=== PATIENT | female | born 1990 | race Caucasian/White ===

== ENCOUNTER 2021-01-04 05:24 | Emergency (ER) | payer OTHER ==
[~2021-01-04] VITALS: Ht 162.6 cm; Wt 81.0 kg
[2021-01-04] MEDS ORDERED: ONDANSETRON PF 4 MG/2 ML VIAL. IVP ONE (05:45)
[2021-01-04] MEDS ORDERED: IV RINGERS SOLUTION,LACTATED 1,000 ML IV ONE (05:45)
--- NOTE | 2021-01-04 05:46 | PHYS DOC ---
Adult General Chief Complaint Chief Complaint: SEIZURE HPI HPI Patient is a 30-year-old female with a past medical history significant for seizure disorder on Keppra and hypertension who presents with a chief complaint of seizure. States that about an hour before coming to the emergency department she had an approximately 1 minute generalized tonic-clonic seizure according to her . States she had had a seizure for well over a year. States that she did not take her Keppra yesterday, 1500 mg twice daily because she was not feeling well and was feeling nauseous so decided not to take it. Denies any headache, fevers, chest pain, shortness of breath, dysuria, hematuria or blood in the stool. Does endorse abdominal discomfort, nausea and vomiting yesterday. Denies any recent travel, traumas, Covid/flu exposures that she is aware of. Denies any alcohol or drug use. Denies any vaginal bleeding, discharge or pain. States that she should not be as her has had a vasectomy. States she was otherwise eating and drinking normally yesterday. States she has been making urine and stool normal for her. (SDUARSHAN HERNANDEZ MD) Review of Systems Review of Systems Review of systems otherwise unremarkable except noted in HPI (SUDARSHAN HERNANDEZ MD) Physical Exam Physical Exam Constitutional: Well developed, well nourished, no acute distress, non-toxic appearance. [] HENT: Normocephalic, atraumatic, bilateral external ears normal, oropharynx moist, no oral exudates, nose normal. [] Eyes: PERRLA, EOMI, conjunctiva normal, no discharge. [] Neck: Normal range of motion, no tenderness, supple, no stridor. [] Cardiovascular: Tachycardia no murmur Lungs & Thorax: Bilateral breath sounds clear to auscultation [] Abdomen: soft, mild generalized tenderness, no masses, no pulsatile masses. [] Skin: Warm, dry, no erythema, no rash. [] Back: No tenderness, no CVA tenderness. [] Extremities: No tenderness, no cyanosis, no clubbing, ROM intact, no edema. [] Neurologic: Alert and oriented X 3, normal motor function, normal sensory function, no focal deficits noted. NIH of 0. [] Psychologic: Affect normal, judgement normal, mood normal. [] (SUDARSHAN HERNANDEZ MD) EKG EKG [] (SUDARSHAN HERNANDEZ MD) EKG Sinus tachycardia 102 bpm, no axis deviation, QTC 466, T wave inversions in lead III and V3, no ST elevations or ST depressions, has no chest pain in ed (DIANA STEPHENS DO) Radiology/Procedures Radiology/Procedures [] (SUDARSHAN HERNANDEZ MD) Radiology/Procedures IMAGING REPORT Signed PATIENT: STORM CASTILLO ACCOUNT: [id number] : 1990 LOCATION: ER AGE: 30 SEX: F EXAM STATUS: REG ER ORD. PHYSICIAN: SUDARSHAN HERNANDEZ MD REASON: Seizure activity Hx: AVM PROCEDURE: CT HEAD WO CONTRAST STUDY: CT head without contrast INDICATION: Seizure activity. Provided history of an AVM. COMPARISON: None. TECHNIQUE: Axial CT imaging through the head without the use of intravenous contrast. Sagittal and coronal reformats were obtained. One or more of the following individualized dose reduction techniques were utilized for this examination: 1. Automated exposure control 2. Adjustment of the mA and/or kV according to patient size 3. Use of iterative reconstruction technique. FINDINGS: No acute intracranial hemorrhage. No localized sulcal effacement. The midline is slightly deviated to the right but without any findings to suggest that this is related to mass effect. Right frontal encephalomalacia in the setting of a right frontotemporoparietal craniotomy and several vascular clips. Associated ex vacuo ventriculomegaly of the right lateral ventricle mainly at the anterior horn. Jara-white matter differentiation is maintained elsewhere. No inflammatory changes or fluid collection within the scalp. A few areas of scarring. Unremarkable orbits. Normally aerated mastoid air cells, middle ears and visualized paranasal sinuses. IMPRESSION: 1. No acute intracranial abnormality by CT. 2. Right frontal lobe encephalomalacia in the setting of several vascular clips and a right frontotemporoparietal craniotomy. Electronically signed by: RAJEEV OLVERA MD (01/04/2021 6:29 AM) [facility] DICTATED AND SIGNED BY: RAJEEV OLVERA MD DATE: 01/04/21625 CC: SUDARSHAN HERNANDEZ MD; PCP,UNKNOWN; DIANA STEPHENS DO ~MTH0 0 IMAGING REPORT Signed PATIENT: STORM CASTILLO ACCOUNT: [id number] : 1990 LOCATION: ER AGE: 30 SEX: F EXAM STATUS: REG ER ORD. PHYSICIAN: SUDARSHAN HERNANDEZ MD REASON: Seizure activity, abdomen pain Omni 300 75cc PROCEDURE: CT ABD PELV W/ IV CONTRST ONLY Study: CT abdomen/pelvis with intravenous contrast Indication: Seizure activity. Abdominal pain. Comparison: None. Technique: Helical CT imaging performed of the abdomen and pelvis after the intravenous administration of 75 cc Omnipaque 300 contrast. Sagittal and coronal reformats were obtained. One or more of the following individualized dose reduction techniques were ut ilized for this examination: 1. Automated exposure control 2. Adjustment of the mA and/or kV according to patient size 3. Use of iterative reconstruction technique. Findings: Chest: Unremarkable. Liver: Hepatic steatosis and hepatomegaly. Gallbladder/Biliary Tree: Surgically absent. Within normal limits biliary tree. Pancreas: Unremarkable. Spleen: Within normal limits for size. Adrenal Glands: Unremarkable. Kidneys/Ureters/Bladder: Symmetric renal enhancement. No hydronephrosis or stone. Unremarkable bladder. Reproductive Organs: Within normal limits uterus and ovaries for patient age. Colon: Within normal limits. Appendix: Normal. Small Bowel: Nonobstructed. Stomach: Unremarkable. Vasculature: Patent major veins. Normal aortic caliber. Lymph Nodes: Normal in size. Peritoneum and Body Wall: No free fluid or pneumoperitoneum. Bones: No acute abnormality. No significant spondylosis. Minimal thoracolumbar dextrocurvature centered at L2. Miscellaneous: None. Impression: 1. No acute abnormality seen throughout the abdomen or pelvis. 2. Hepatic steatosis and hepatomegaly. Electronically signed by: RAJEEV OLVERA MD (01/04/2021 6:33 AM) [facility] DICTATED AND SIGNED BY: RAJEEV OLVERA MD DATE: 01/04/21628 CC: SUDARSHAN HERNANDEZ MD; PCP,UNKNOWN; DIANA STEPHENS DO ~MTH0 0 (DIANA STEPHENS DO) Heart Score Risk Factors: Risk Factors: DM, Current or recent (<one month) smoker, HTN, HLP, family history of CAD, obesity. Risk Scores: Risk Factors: DM, Current or recent (<one month) smoker, HTN, HLP, family history of CAD, obesity. (SUDARSHAN HERNANDEZ MD) Course & Med Decision Making Course & Med Decision Making Patient is a 30-year-old female with a seizure disorder who presents with a single 1 minute seizure. On arrival, EMS stated she was awake and alert but was post ictal. Had a blood sugar of 180. Vital signs notable for tachycardia. Physical exam noted above. Patient placed on the monitor with IV access established and IV fluid began. Given Zofran for nausea. Given home dose of Keppra that she missed. Patient's care handed off to day team at checkout. [] (SUDARSHAN HERNANDEZ MD) Course & Med Decision Making 30-year-old female with history of 2 AVMs w/vascular clipping approximately 3 years ago while residing in [place] (moved to [facility] 3 months ago[place] -surgery was complicated via upper extremity bleeding, compartment syndrome and fasciotomy (2 large scars on forerarm). Presents to the ED after 1 seizure, postictal on arrival. Patient complains of nausea and vomiting yesterday, and missed 1 dose of her Keppra. No associated diarrhea. Last seizure was in August. Keppra dosage has been consistent for approximately 1 year. Is not establish neurology care. Has no associated fever, chills, headache, nuchal rigidity, vaginal bleeding, dysuria, hematuria, cough, sore throat, diarrhea or any other infectious symptoms. Denies any recent alcohol use. Reports she is frightened every time she wakes up in a hospital because of her experience 3 yrs ago where she called 911 and recalls being intubated. Nexus criteria negative. AG 2/2 elevated LA which is c/w seizure activity, normal renal function. Patient repeatedly asked if she was having a headache history with her nausea or vomiting and she eventually did report she had a mild headache and it was her typical migraine. Has no headache currently. reports difficulties establishing neurology care due to paperwork issues. Has plenty of Keppra refills. Reports she does not smoke marijuana daily for more than a year-is aware alcohol and drugs can decrease her seizure threshold and strongly encourage medication compliance. Will prescribe ODT Zofran. Pt with DMC/steady gait and no complaints at time of discharge. Will discharge home with strict ED return precautions were given for repeat head trauma, recurrent seizures with concerns for cyanosis or that do not resolve quickly, altered mental status, confusion or neurologic deficits. Encouraged urgent outpatient follow-up with PMD and neurology urgent outpatient follow-up. Life-threatening processes were considered but are low suspicion at this time, given history, physical exam and ED workup. Pt was educated on all prescription medications and adverse effects. All patient's questions were answered and pt was stable at time of discharge. Life/limb-threatening differential includes but is not limited to, intracranial hemorrhage, diffuse axonal injury, spinal cord syndrome, unstable cervical fracture or SCIWORA, fractures or joint dislocations, neurovascular injuries, organ injury or laceration, pneumothorax, pneumoperitoneum, compartment syndrome, flail chest or respiratory distress, status epilepticus or airway compromise. I spoken with the patient and her caregivers. I explained the patient's condition, diagnoses and treatment plan based on the information available to me at this time. I have answered the patient and her caregiver's questions and addressed any concerns. The patient and her caregivers have a good understandi ng of patient's diagnosis, condition and treatment plan as can be expected at this point. Vital signs have been stable. Patient's condition is stable and appropriate for discharge from the emergency department. Patient will pursue further outpatient evaluation with primary care physician or other designated or consulting physician as outlined in the discharge instructions. The patient and/or caregivers are agreeable to this plan of care and follow-up instructions have been explained in detail. The patient and/or caregivers have received these instructions in written form and have expressed an understanding of the discharge instructions. The patient and/or caregivers are aware that any significant change of condition or worsening of symptoms should prompt immediate return to this or the closest emergency department or call to 911. ([facility]) Dragon Disclaimer Dragon Disclaimer This electronic medical record was generated, in whole or in part, using a voice recognition dictation system. (SUDARSHAN HERNANDEZ MD) Departure Departure: Impression: Primary Impression: Seizure Disposition: 01 DC HOME SELF CARE/HOMELESS Condition: STABLE Referrals: CARLOS MORROW MD FOLLOW UP WITH FAMILY MEDICINE: Banyan Branch, [facility] [address] [address] [address], [facility] Instructions: Seizure, Adult Additional Instructions: FOLLOW UP WITH NEUROLOGY: Katie Mayfield MD [address] [place] [address], [address] [place], [place] [id number] OR [address] [place], [place] [id number] EMERGENCY DEPARTMENT GENERAL DISCHARGE INSTRUCTIONS Thank you for coming to [facility] (ED) today and trusting us with you care. We trust that you had a positivie experience in our Emergency Department. If you wish to speak to the department management, you may call the director at [phone]. YOUR FOLLOW UP INSTRUCTIONS ARE FOLLOWS: 1. Do you have a private Doctor? If you do not have a private doctor, please ask for a resource list of physicians or clinics that may be able to assist you with follow up care. 2. The Emergency Physician has interpreted your x-rays. The X-Ray specialist will also review them. If there is a change in the findings, you will be notified in 48 hours when at all possible. 3. A lab test or culture has been done, your results will be reviewed and you will be notified if you need a change in treatment. ADDITIONAL INSTRUCTIONS AND INFORMATION: 1. Your care today has been supervised by a physician who is specially trained in emergency care. Many problems require more than one evaluation for a complete diagnosis and treatment. We recommend that you schedule your follow up appointment as recommended to ensure complete treatment of you illness or injury. If you are unable to obtain follow up care and continue to have a problem, or if your condition worsens, we recommend that you return to the ED. 2. We are not able to safely determine your condition over the phone nor are we able to give sound medical advice over the phone. For these safety reasons, if you call for medical advice we will ask you to come to the ED for further evaluation. 3. If you have any questions regarding these discharge instructions please call the ED at [phone]. SAFETY INFORMATION: In the interest of safety, wellness, and injury prevention; we encourage you to wear your sealbelt, if you smoke; quite smoking, and we encourage family to use a protective helmet for bicycling and other sporting events that present an increased risk for head injury. IF YOUR SYMPTOMS WORSEN OR NEW SYMPTOMS DEVELOP, OR YOU HAVE CONCERNS ABOUT YOUR CONDITION; OR IF YOUR CONDITION WORSENS WHILE YOU ARE WAITING FOR YOUR FOLLOW UP APPOINTMENT; EITHER CONTACT YOUR PRIMARY CARE DOCTOR, THE PHYSICIAN WHOSE NAME AND NUMBER YOU WERE GIVEN, OR RETURN TO THE ED IMMEDIATELY. Scripts Ondansetron (ONDANSETRON ODT) 4 Mg Tab.rapdis 4 MG PO Q6HRS for Nausea/Vomiting, #15 TAB Prov: DIANA STEPHENS DO 01/04/21 SUDARSHAN HERNANDEZ MD Jan 04, 2021 05:46 DIANA STEPHENS DO Jan 04, 2021 07:41
[2021-01-04 05:50] LABS: BASO % 0 % (0-3); EOS # 0.1 x10^3/uL (0.0-0.7); EOS % 1 % (0-3); HEMATOCRIT 47.8 % (36.0-47.0); HEMOGLOBIN 15.7 g/dL (12.0-15.5); LYMPH # 1.7 x10^3/uL (1.0-4.8); LYMPH % 15 % (24-48); MEAN CORPUSCULAR HEMOGLOBIN 30 pg (25-35); MEAN CORPUSCULAR HGB CONC 33 g/dL (31-37); MEAN CORPUSCULAR VOLUME 91 fL (79-100); MONO # 0.4 x10^3/uL (0.0-1.1); MONO % 4 % (0-9); NEUT # 8.9 x10^3uL (1.8-7.7); NEUT % 80 % (31-73); PLATELET COUNT 378 x10^3/uL (140-400); RED BLOOD COUNT 5.25 x10^6/uL (3.50-5.40); RED CELL DISTRIBUTION WIDTH 13.6 % (11.5-14.5); WHITE BLOOD COUNT 11.1 x10^3/uL (4.0-11.0)
[2021-01-04 05:54] LABS: CALCIUM 9.4 mg/dL (8.5-10.1); GFR 64.3; POTASSIUM 4.5 mmol/L (3.5-5.1)
[2021-01-04] MEDS ORDERED: CONTRAST GIVEN. MC PRN (06:00)
[2021-01-04] MEDS ORDERED: levETIRAcetam 500 MG TABLET PO SCH (06:00)
[2021-01-04] MEDS ORDERED: IOHEXOL 300 MG/ML 75 ML VIAL. IV ONE (06:00)
[2021-01-04] MEDS ORDERED: MIDAZOLAM HCL PF 5 MG/5 ML VIAL. IV ONE (06:00)
[2021-01-04 06:01] LABS: ALBUMIN 4.6 g/dL (3.4-5.0); MAGNESIUM 2.2 mg/dL (1.8-2.4); TOTAL BILIRUBIN 0.3 mg/dL (0.2-1.0); TOTAL PROTEIN 9.1 g/dL (6.4-8.2)
[2021-01-04 06:03] LABS: PREG TEST PT QUAL NEGATIVE (NEG)
--- NOTE | 2021-01-04 06:30 | EKG ---
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
--- NOTE | 2021-01-04 06:32 | RAD ---
STUDY: CT head without contrast INDICATION: Seizure activity. Provided history of an AVM. COMPARISON: None. TECHNIQUE: Axial CT imaging through the head without the use of intravenous contrast. Sagittal and co abdirizak reformats were obtained. One or more of the following individualized dose reduction techniques were utilized for this examinat ion: 1. Automated exposure control 2. Adjustment of the mA and/or kV according to patient size 3. Use of iterative reconstruction technique. FINDINGS: No acute intracranial hemorrhage. No localized sulcal effacement. The midline is slightly deviated to the right but without any findings to suggest that this is related to mass effect. Right frontal enc ephalomalacia in the setting of a right frontotemporoparietal craniotomy and several vascular clips. Associated ex vacuo ventriculomegaly of the right lateral ventricle mainly at the anterior horn. Jara -white matter differentiation is maintained elsewhere. No inflammatory changes or fluid collection within the scalp. A few areas of scarring. Unremarkable o rbits. Normally aerated mastoid air cells, middle ears and visualized paranasal sinuses. IMPRESSION: 1. No acute intracranial abnormality by CT. 2. Right frontal lobe encephalomalacia in the setting of several vascular clips and a right frontote mporoparietal craniotomy. Electronically signed by: RAJEEV OLVERA MD (01/04/2021 6:29 AM) [facility]
--- NOTE | 2021-01-04 06:36 | RAD ---
Study: CT abdomen/pelvis with intravenous contrast Indication: Seizure activity. Abdominal pain. Comparison: None. Technique: Helical CT imaging performed of the abdomen and pelvis after the intravenous administratio n of 75 cc Omnipaque 300 contrast. Sagittal and coronal reformats were obtained. One or more of the following individualized dose reduction techniques were utilized for this examinat ion: 1. Automated exposure control 2. Adjustment of the mA and/or kV according to patient size 3. Use of iterative reconstruction technique. Findings: Chest: Unremarkable. Liver: Hepatic steatosis and hepatomegaly. Gallbladder/Biliary Tree: Surgically absent. Within normal limits biliary tree. Pancreas: Unremarkable. Spleen: Within normal limits for size. Adrenal Glands: Unremarkable. Kidneys/Ureters/Bladder: Symmetric renal enhancement. No hydronephrosis or stone. Unremarkable bladde r. Reproductive Organs: Within normal limits uterus and ovaries for patient age. Colon: Within normal limits. Appendix: Normal. Small Bowel: Nonobstructed. Stomach: Unremarkable. Vasculature: Patent major veins. Normal aortic caliber. Lymph Nodes: Normal in size. Peritoneum and Body Wall: No free fluid or pneumoperitoneum. Bones: No acute abnormality. No significant spondylosis. Minimal thoracolumbar dextrocurvature center ed at L2. Miscellaneous: None. Impression: 1. No acute abnormality seen throughout the abdomen or pelvis. 2. Hepatic steatosis and hepatomegaly. Electronically signed by: RAJEEV OLVERA MD (01/04/2021 6:33 AM) [facility]
[2021-01-04 07:11] LABS: AMPHETAMINE/METHAMPHETAMINE NEG (NEG); BARBITURATES NEG (NEG); BENZODIAZEPINES POS (NEG); CANNABINOIDS POS (NEG); COCAINE NEG (NEG); METHADONE NEG (NEG); OPIATES NEG (NEG); PHENCYCLIDINE NEG (NEG)
[2021-01-04 07:27] LABS: BILIRUBIN,URINE NEG (NEG); CLARITY,URINE HAZY; COLOR,URINE YELLOW; GLUCOSE,URINE NEG (NEG); NITRITE,URINE NEG (NEG); UROBILINOGEN,URINE 0.2 mg/dL (0.2 mg/dL)
[2021-01-04 07:28] LABS: BACTERIA,URINE FEW /HPF (0-FEW); SQUAMOUS EPITHELIAL CELL,UR MOD /LPF
[2021-01-04 07:47] VITALS: BP 124/78
[2021-01-04] MEDS ORDERED: ONDA4TAB12 PO (07:51)
== END 2021-01-04 08:10 | disposition home or self-care (01) ==
LOC: ER 05:24
DX: G40.909 Epilepsy, unspecified, not intractable, without status epilepticus (principal); R11.2 Nausea with vomiting, unspecified; I10 Essential (primary) hypertension
CPT/HCPCS: 36415; 70450; 74177; 80053; 80307; 81001; 82550; 83605; 83735; 84443; 84484; 84703; 85025; 93005; 96361; 96374; 96375; 99285; G0480; J2250; J2405; J7120; Q9967

== ENCOUNTER 2021-04-02 18:49 | Emergency (ER) | payer OTHER ==
[~2021-04-02 18:49] MED LIST: ONDA4TAB12 PO
== END 2021-04-02 19:24 | disposition left against medical advice (07) ==
LOC: ER 18:49
DX: Z04.1 Encounter for examination and observation following transport accident (principal); Z53.21 Procedure and treatment not carried out due to patient leaving prior to being seen by health care provider; V89.2XXA Person injured in unspecified motor-vehicle accident, traffic, initial encounter; Y93.89 Activity, other specified; Y92.89 Other specified places as the place of occurrence of the external cause; Y99.8 Other external cause status

== ENCOUNTER 2021-04-17 11:20 | Emergency (ER) | payer OTHER ==
[~2021-04-17] VITALS: Ht 162.6 cm; Wt 81.0 kg
--- NOTE | 2021-04-17 12:12 | RAD ---
EXAM: Bilateral shoulders, 3 views. HISTORY: Pain. COMPARISON: None. FINDINGS: 3 views of both shoulders are obtained. There is no acute fracture, dislocation or subluxat ion. IMPRESSION: No acute osseous finding. Electronically signed by: Karen Hollingsworth MD (04/17/2021 12:10 PM) [id number]
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
[2021-04-17] MEDS ORDERED: IOHEXOL 300 MG/ML 75 ML VIAL. IV ONE (13:15)
[2021-04-17] MEDS ORDERED: CONTRAST GIVEN. MC PRN (13:15)
[2021-04-17] MEDS ORDERED: HYDROmorphone PF 1 MG/ML DISP.SYRIN IVP ONE (13:15)
[2021-04-17 13:26] LABS: BASO % 0 % (0-3); EOS % 0 % (0-3); HEMATOCRIT 41.1 % (36.0-47.0); HEMOGLOBIN 14.1 g/dL (12.0-15.5); LYMPH % 16 % (24-48); MEAN CORPUSCULAR HEMOGLOBIN 31 pg (25-35); MEAN CORPUSCULAR HGB CONC 34 g/dL (31-37); MEAN CORPUSCULAR VOLUME 90 fL (79-100); MONO # 0.7 x10^3/uL (0.0-1.1); MONO % 5 % (0-9); NEUT % 79 % (31-73); PLATELET COUNT 479 x10^3/uL (140-400); RED BLOOD COUNT 4.58 x10^6/uL (3.50-5.40); RED CELL DISTRIBUTION WIDTH 12.7 % (11.5-14.5); WHITE BLOOD COUNT 12.7 x10^3/uL (4.0-11.0)
[2021-04-17 13:43] LABS: CALCIUM 9.3 mg/dL (8.5-10.1); CREATININE 0.7 mg/dL (0.6-1.0); GFR 96.4; POTASSIUM 3.2 mmol/L (3.5-5.1)
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
[2021-04-17 15:10] VITALS: BP 149/90
[2021-04-17] MEDS ORDERED: LIDO700A21 TP (15:30)
== END 2021-04-17 15:34 | disposition home or self-care (01) ==
LOC: ER 11:20
DX: S20.212A Contusion of left front wall of thorax, initial encounter (principal); S30.1XXA Contusion of abdominal wall, initial encounter; I10 Essential (primary) hypertension; V43.52XA Car driver injured in collision with other type car in traffic accident, initial encounter; Y93.89 Activity, other specified; Y92.89 Other specified places as the place of occurrence of the external cause; Y99.8 Other external cause status
CPT/HCPCS: 36415; 70450; 71260; 72125; 73030; 74177; 80048; 81025; 85025; 96374; 99285; J1170; Q9967